=== PATIENT | female | born 1955 | race Caucasian/White ===

== ENCOUNTER 2019-09-24 18:23 | Emergency (ER) | payer BC ==
[2019-09-24] MEDS ORDERED: Adacel (T-DAP) 0.5 ML SYRINGE ONE (18:43)
[2019-09-24] MEDS ORDERED: Bacitracin 1 PK ONE (18:43)
== END 2019-09-24 18:55 | disposition home or self-care (01) ==
LOC: MADERS 18:23
DX: S61.211A Laceration without foreign body of left index finger without damage to nail, initial encounter (principal); Z23 Encounter for immunization; W45.8XXA Other foreign body or object entering through skin, initial encounter; Y93.K1 Activity, walking an animal
CPT/HCPCS: 90471; 90715; 99282